=== PATIENT | male | born 1980 | race Caucasian/White ===

== ENCOUNTER → 2018-05-07 | Day surgery (SDC) | payer OTHER ==
[~2018-05-07] MED LIST: FENTANYL CITRATE/PF 100MCG/2 ML INJ ONE; HYDROCORTISONE25 MG RC; HYOSCYAMINE SULFATE 0.5 MG/ML INJ ONE; KETAMINE HCL INJ 50 MG/ML 10 ML VIAL ONE; MIDAZOLAM HCL 5 MG/ML VIAL ONE; PROPOFOL IV EMULSION 10 MG/ML 50 ML VIAL ONE
--- OUTSIDE RECORDS SUMMARY | 2018-05-07 08:09 | XMS REPORT | Clinical Summary ---
Author Author [facility] Organization [facility] Address Unknown Phone Unavailable Care Team Providers Care Commercial Energy Auditor Name Role Phone Eloise Bills MD PCP Allergies Comments Active Allergy Reactions Severity Noted Date No Known Drug Allergies 04/24/2015 Medications End Date Status Medication Sig Dispensed Refills Start Date Active ACCU-CHEK JIE PLUS TEST 0 STRP strip test strips 6 Active ACCU-CHEK SOFTCLIX 0 LANCETS lancets 6 Active losartan-hydrochlorothiaz Take 1 tablet 90 tablet 0 jessica (HYZAAR) 100-25 mg by mouth once 7 per tabletIndications: daily. Essential hypertension Active metFORMIN XR (GLUCOPHAGE Take 1 tablet 90 tablet 0 XR) 500 mg 24 hr (500 mg 8 tabletIndications: Class total) by 3 obesity due to excess mouth daily calories without serious with dinner. comorbidity with body mass index (BMI) of 40.0 to 44.9 in adult, Impaired glucose tolerance 05/19/2017 Discontinued metFORMIN XR (GLUCOPHAGE Take 1 tablet 90 tablet 0 XR) 500 mg 24 hr (500 mg 7 tabletIndications: Type 2 total) by diabetes mellitus without mouth daily complication, without with dinner. long-term current use of insulin (HCC) Active Problems Problem Noted Date Class 3 obesity due to excess calories without serious comorbidity with 05/19/2017 body mass index (BMI) of 40.0 to 44.9 in adult Overview: BMI 42 working on lifestyle modification for weight loss L ast Assessment & Plan: Intermittent fasting- Dr Jose Alberto Hope Diabetes mellitus type 2 in obese 04/24/2015 Overview: Current HbA1C- 5.5 Off Metformin since 1 year Lost weight 50 lbs with ketosis diet Last Assessment & Plan: Diabetes is improving with lifestyle modifications. Continue current treatment regimen. Dietary recommendations for ADA diet. Regular aerobic exercise. Discussed sick day management. Plastic Parts Fabricator Trimmer referral- patient declines Diabetes will be reassessed in 3 months. Essential hypertension 04/24/2015 Overview: Blood pressure has improved with weight loss lost 50 lbs with Keto diet still working on weight loss off BP medications L ast Assessment & Plan: Hypertension is improving with lifestyle modifications. Continue current treatment regimen. Dietary sodium restriction. Weight loss. Regular aerobic exercise. Ambulatory blood pressure monitoring. Blood pressure will be reassessed in 3 months. HLD (hyperlipidemia) 04/24/2015 Morbid obesity 04/24/2015 Overview: BMI 42 -working on weight loss with ketosis diet -does not wasn't to see real estate instructor at this time -prefers to loose weight with his own lifestyle modifications L ast Assessment & Plan: Recommend intermittent FASTING Weight Watchers or Plastic Parts Fabricator Trimmer PAtient declines assistance at this time. Seborrheic eczema 04/24/2015 Sleep apnea 04/24/2015 Hypertension 02/23/2013 Encounters Care Team Description Date Type Specialty Traci Avilez MA 04/02/2018 Telephone Family Medicine Eloise Bills MD Class 3 obesity due to excess calories without serious comorbidity with body mass index (BMI) of 40.0 to 44.9 in adult (Primary Dx); Impaired glucose tolerance; Seborrheic dermatitis of scalp; Essential hypertension; Morbid obesity; Diabetes mellitus type 2 in obese 05/19/2017 Office Visit Family Medicine Eloise Bills MD Type 2 diabetes mellitus with complication, unspecified usp insulin use status 05/15/2017 Lab Lab after 05/06/2017 Immunizations Name Dates Previously Given Next Due Influenza Trivalent 11/23/2014 Tdap 04/10/2015 Family History Medical History Relation Name Comments Diabetes Maternal Grandfather Dementia Maternal Grandmother Diabetes Maternal Grandmother Relation Name Status Comments Maternal Grandfather Maternal Grandmother Paternal Grandfather Paternal Grandmother Social History Date Tobacco Use Types Packs/Day Years Used Former Smoker Cigars 10 Smokeless Tobacco: Never Used Alcohol Use Drinks/Week oz/Week Comments Yes Seldom drinks, mostly in a social environment. Sex Assigned at Date Recorded Not on file Industry Job Start Date Occupation Not on file Not on file Not on file Travel End Travel History Travel Start No recent travel history available. Last Filed Vital Signs Time Taken Vital Sign Reading 05/19/2017 8:28 AM CDT Blood Pressure 129/74 05/19/2017 8:28 AM CDT Pulse 98 05/19/2017 8:28 AM CDT Temperature 36.9 C (98.4 F) 05/19/2017 8:28 AM CDT Respiratory Rate 18 05/19/2017 8:28 AM CDT Oxygen Saturation 98% - Inhaled Oxygen - Concentration 05/19/2017 8:28 AM CDT Weight 144 kg (318 lb 6.4 oz) 05/19/2017 8:28 AM CDT Height 185.4 cm (6' 1") 05/19/2017 8:28 AM CDT Body Mass Index 42.01 Plan of Treatment Health Maintenance Due Date Last Done Comments URINE MICROALBUMIN 09/17/2016 09/18/2015, 09/18/2015 DIABETIC FOOT EXAM 10/21/2016 10/22/2015, 10/22/2015, 09/18/2015 DIABETIC RETINAL EYE EXAM 09/17/2017 09/18/2015 INFLUENZA VACCINE 09/23/2017 11/23/2014 Procedures Comments Procedure Name Priority Date/Time Associated Diagnosis HEPATIC FUNCTION PANEL Routine 05/15/2017 Type 2 diabetes mellitus 8:29 AM CDT with complication, unspecified staff therapist insulin use status LIPID PANEL Routine 05/15/2017 Type 2 diabetes mellitus 8:29 AM CDT with complication, unspecified usp insulin use status URINALYSIS, AUTOMATED Routine 05/15/2017 Type 2 diabetes mellitus WITH MICROSCOPY 8:29 AM CDT with complication, unspecified staff therapist insulin use status HEMOGLOBIN A1C Routine 05/15/2017 Type 2 diabetes mellitus 8:29 AM CDT with complication, unspecified staff therapist insulin use status BASIC METABOLIC PANEL Routine 05/15/2017 Type 2 diabetes mellitus 8:29 AM CDT with complication, unspecified usp insulin use status CBC WITH PLATELET AND Routine 05/15/2017 Type 2 diabetes mellitus DIFFERENTIAL 8:29 AM CDT with complication, unspecified staff therapist insulin use status after 05/06/2017 Results * Urinalysis, automated with microscopy (05/15/2017 8:29 AM CDT) Color, UA YELLOW YELLOW [facility] [employer] [facility] [employer] [place] Appearance CLEAR CLEAR [facility] [employer] [facility] [employer] [place] Specific gravity, urine 1.015 1.001 - 1.035 [facility] [employer] [facility] [employer] [place] pH, urine 7.0 5.0 - 8.0 [facility] [place] Glucose, urine NEGATIVE NEGATIVE [facility] [place] Bilirubin, UA NEGATIVE NEGATIVE [facility] [place] Ketones, UA NEGATIVE NEGATIVE [employer] [facility] [employer] [place] Occult blood, urine NEGATIVE NEGATIVE [facility] [place] Protein, UA NEGATIVE NEGATIVE [facility] [place] Nitrite, UA NEGATIVE NEGATIVE [facility] [place] Leukocyte esterase, UA NEGATIVE NEGATIVE [facility] [place] WBC, UA NONE SEEN < OR=5 /HPF [facility] [place] RBC, UA NONE SEEN < OR=2 /HPF [facility] [place] Squamous epithelial NONE SEEN < OR=5 /HPF [facility] [employer] cells, UA [place] Bacteria, UA NONE SEEN NONE SEEN /HPF [facility] [place] Hyaline casts, UA NONE SEEN NONE SEEN /LPF [employer] [facility] [employer] [place] Specimen Blood Resulting Agency Comment Performing Organization Information: Site ID: [id number] Name: [facility] Address: [address] [place] [phone] Director: Mellissa Mcmullen MD Performing Organization Address City/State/Zipcode Phone Number [employer] [address] [address] * CBC with platelet and differential (05/15/2017 8:29 AM CDT) WBC 6.7 3.8 - 10.8 Thousand/uL [employer] [facility] [employer] [place] RBC 5.82 (H) 4.20 - 5.80 Million/uL [employer] [facility] [employer] [place] HGB 15.6 13.2 - 17.1 g/dL [employer] [facility] [employer] [place] HCT 47.0 38.5 - 50.0 % [employer] [facility] [employer] [place] MCV 80.8 80.0 - 100.0 fL [employer] [facility] [employer] [place] MCH 26.8 (L) 27.0 - 33.0 pg [employer] [facility] [employer] [place] MCHC 33.2 32.0 - 36.0 g/dL [employer] [facility] [employer] [place] RDW 14.4 11.0 - 15.0 % [employer] [facility] [employer] [place] Platelet count 265 140 - 400 Thousand/uL [employer] [facility] [employer] [place] MPV 8.9 7.5 - 12.5 fL [employer] [facility] [employer] [place] Neutrophils, absolute 3,732 1,500 - 7,800 cells/uL [employer] [facility] [employer] [place] Lymphocytes, absolute 2,352 850 - 3,900 cells/uL [employer] [facility] [employer] [place] Monocytes, absolute 422 200 - 950 cells/uL [employer] [facility] [employer] [place] Eosinophils, absolute 134 15 - 500 cells/uL [facility] [employer] [facility] [employer] [place] Basophils, absolute 60 0 - 200 cells/uL [facility] [employer] [facility] [employer] [place] Neutrophils 55.7 % [facility] Lymphocytes 35.1 % [facility] Monocytes 6.3 % [facility] Eosinophils 2.0 % [employer] [facility] [employer] [place] Basophils + RC 0.9 % [employer] [facility] [employer] [place] Specimen Blood Resulting Agency Comment Performing Organization Information: Site ID: [id number] Name: [facility] Address: [address] [place] [phone] Director: Mellissa Mcmullen MD Performing Organization Address [facility] Phone Number [facility] [employer] [facility] [employer] [place] [phone] * Hemoglobin A1c (05/15/2017 8:29 AM CDT) Hemoglobin A1C 5.5 <5.7 % of total Hgb [employer] [facility] [employer] Comment: [place] For the purpose of screening for the presence of diabetes: <5.7% Consistent with the absence of diabetes 5.7-6.4%Consistent with increased risk for diabetes (predi abetes) > or=6.5%Consistent with diabetes This assay result is consistent with a decreased risk of diabetes. Currently, no consensus exists regarding use of hemoglobin A1c for diagnosis of diabetes in children. According to [place] Diabetes Association (ADA) guidelines, hemoglobin A1c <7.0% represents optimal control in non- diabetic patients. Different metrics may apply to specific patient populations. Standards of Medical Care in Diabetes(ADA). Specimen Blood Resulting Agency Comment Performing Organization Information: Site ID: [id number] Name: [facility] Address: [address] [place] [phone] Director: Mellissa Mcmullen MD Performing Organization Address [facility]/Zipcode Phone Number [facility] [facility] [address] [phone] * Hepatic function panel (05/15/2017 8:29 AM CDT) Protein 7.1 6.1 - 8.1 g/dL [employer] [facility] [employer] [place] Albumin, S 4.5 3.6 - 5.1 g/dL [employer] [facility] [employer] [place] Globulin, total 2.6 1.9 - 3.7 g/dL (calc) [facility] Albumin/globulin ratio 1.7 1.0 - 2.5 (calc) [facility] Total bilirubin 0.6 0.2 - 1.2 mg/dL [facility] Bilirubin direct 0.1 < OR=0.2 mg/dL [facility] Bilirubin, indirect 0.5 0.2 - 1.2 mg/dL (calc) [facility] Alkaline phosphatase 47 40 - 115 U/L [facility] AST 18 10 - 40 U/L [facility] ALT 29 9 - 46 U/L [facility] Specimen Blood Resulting Agency Comment Performing Organization Information: Site ID: [id number] Name: [facility] Address: [address] [place] [phone] Director: Mellissa Mcmullen MD Performing Organization Address City/State/Zipcode Phone Number [address] [address] * Lipid panel (05/15/2017 8:29 AM CDT) Cholesterol, total 200 (H) <200 mg/dL [facility] HDL cholesterol 37 (L) >40 mg/dL [facility] Triglycerides 101 <150 mg/dL [facility] LDL cholesterol 142 (H) mg/dL (calc) [facility] calculated Comment: [place] Reference range: <100 Desirable range <100 mg/dL for patients with CHD or diabetes and <70 mg/dL for diabetic patients with known heart disease. LDL-C is now calculated using the Brandt-Randall calculation, which is a validated novel method providing better accuracy than the Friedewald equation in the estimation of LDL-C. Brandt LOYA et al. JUAN CARLOS. 2013;310(19): 4398-4082 (http://education.Stepsss.Silecs/faq/SQX969) Cholesterol/HDL ratio 5.4 (H) <5.0 (calc) [facility] Non-HDL cholesterol 163 (H) <130 mg/dL (calc) [facility] Comment: [place] For patients with diabetes plus 1 major ASCVD risk factor, treating to a non-HDL-C goal of <100 mg/dL (LDL-C of <70 mg/dL) is considered a therapeutic option. Specimen Blood Resulting Agency Comment Performing Organization Information: Site ID: [id number] Name: [facility] Address: [address] [place] [phone] Director: Mellissa Mcmullen MD Performing Organization Address [facility] Services[facility] Phone Number [facility] [place] [phone] * Basic metabolic panel (05/15/2017 8:29 AM CDT) Glucose 118 (H) 65 - 99 mg/dL [employer] [facility] [employer] Comment: [place] Fasting reference interval For someone without known diabetes, a glucose value between 100 and 125 mg/dL is consistent with prediabetes and should be confirmed with a follow-up test. BUN, whole blood 14 7 - 25 mg/dL [facility] Creatinine 0.72 0.60 - 1.35 mg/dL [facility] [employer] [facility] [employer] [place] EGFR Non-Afr. Lebanese 122 > OR=60 mL/min/1.73m2 [facility] EGFR 141 > OR=60 mL/min/1.73m2 [facility] BUN/creatinine ratio NOT APPLICABLE 6 - 22 (calc) [facility] Sodium 140 135 - 146 mmol/L [facility] Potassium 4.6 3.5 - 5.3 mmol/L [facility] Chloride 105 98 - 110 mmol/L [facility] CO2 28 20 - 31 mmol/L [facility] Calcium 9.4 8.6 - 10.3 mg/dL [employer] [facility] [employer] [place] Specimen Blood Resulting Agency Comment Performing Organization Information: Site ID: [id number] Name: [facility] Address: [address] [place] [phone] Director: Mellissa Mcmullen MD Performing Organization Address [facility] Servicescode Phone Number [facility] [employer] [place] [phone] after 05/06/2017 Insurance Payer Benefit Subscriber ID Type Phone Address Plan / Group AETNA AETNA PPO xxxxxxxxxx PPO OPEN CHOICE Advance Directives Patient has advance care planning documents on file. For more information, kathe hart contact: [facility] [address] [place] [address]
[2018-05-07 13:05] VITALS: BP 135/98
--- NOTE | 2018-05-07 19:12 | Operative Report ---
DATE OF PROCEDURE: 05/07/2018 SURGEON: Jeffry Ornelas MD PROCEDURES: Colonoscopy with polypectomy and biopsies. INDICATIONS FOR PROCEDURE: Rectal bleeding. MEDICATION: The patient was done under MAC, please see anesthesiologist's note. PROCEDURE IN DETAIL: With the patient in left lateral decubitus position, flexible fiberoptic Olympus colonoscope was inserted into the rectum with ease and advanced all the way to the cecum. An approximately 5 mm sessile polyp was snared from the cecum and polypectomy site was hemoclipped. Ileocecal valve was intubated and the scope was advanced into the terminal ileum. A prominent fold was noted in the terminal ileum that was biopsied. The scope was then withdrawn back into the colon. It was then withdrawn slowly. Mucosa overlying the ascending, transverse, descending and sigmoid colon appeared to be within normal limits. Several aphthous-like ulcers were noted in the rectum and biopsies were obtained. The scope was then retroflexed into the distal rectum and small internal hemorrhoids were noted, none of which was actively bleeding. The scope was then straightened out, it was subsequently withdrawn. The patient tolerated the procedure well. IMPRESSION: 1. Prominent fold, terminal ileum, biopsied. 2. Cecal polyp snared and polypectomy site was hemoclipped. 3. Scattered aphthous-like ulcers in the rectum. Biopsies were obtained. 4. Internal hemorrhoids, none actively bleeding. PLAN: Follow up histology. Initiate VSL#3 one p.o. daily. Anusol HC suppositories b.i.d. x10 days, then p.r.n. Timing of followup colonoscopy pending pathology report. Jeffry Ornelas MD [facility] /[id number]
== END | disposition home or self-care (01) ==
LOC: OR 08:07
PROVIDERS: ATTEND Internal Medicine Gastroenterology
DX: K92.1 Melena (principal); K63.5 Polyp of colon; K62.6 Ulcer of anus and rectum; K63.89 Other specified diseases of intestine; K64.8 Other hemorrhoids
CPT/HCPCS: 45380; 45385; J1980; J2250; J2704

== ENCOUNTER → 2018-07-02 | Day surgery (SDC) | payer OTHER ==
[2018-07-01 12:47] LABS: BASOPHILS # (AUTO) 0.1 (0.0-0.1); BASOPHILS % 0.8 % (0.0-1.0); EOSINOPHILS # (AUTO) 0.2 (0.0-0.4); HEMATOCRIT 48.9 % (38.2-49.6); HEMOGLOBIN 16.7 g/dL (14.0-18.0); LYMPHOCYTES # (AUTO) 2.6 (1.0-3.2); MEAN CORPUSCULAR HEMOGLOBIN 26.9 pg (28-32); MEAN CORPUSCULAR HGB CONC 34.2 g/dL (31-35); MEAN CORPUSCULAR VOLUME 78.9 fL (81-99); MONOCYTES # (AUTO) 0.5 (0.2-0.8); MONOCYTES % 6.5 % (4.4-11.3); NEUTROPHILS # (AUTO) 4.6 (2.1-6.9); NEUTROPHILS % 57.3 % (38.7-80.0); PLATELET COUNT 289 x10e3/uL (140-360); RED CELL DISTRIBUTION WIDTH 13.9 % (11.7-14.4)
[2018-07-01 13:00] LABS: ANION GAP 11.1 mmol/L (8-16); BLOOD UREA NITROGEN 11 mg/dL (7-26); BUN/CREATININE RATIO 14 (6-25); CALCIUM 9.8 mg/dL (8.4-10.2); CARBON DIOXIDE 26 mmol/L (22-29); CHLORIDE 101 mmol/L (98-107); EST GLOMERULAR FILTRATION RATE > 60 ML/MIN (60-); GLUCOSE 96 mg/dL (74-118); POTASSIUM 4.1 mmol/L (3.5-5.1); SODIUM 134 mmol/L (136-145)
[~2018-07-02] MED LIST changes: +ACETAMINOPHEN/CODEINE 300MG - 30MG TAB ONE; +BUPIVACAINE 0.25%/EPI 30ML SDV INJ ONE; +DEXAMETHASONE SOD PHOS INJ 4 MG/ML VIAL ONE; +HYDROMORPHONE 2MG/ML 2 MG/ML ML ONE; -HYOSCYAMINE SULFATE 0.5 MG/ML INJ ONE; -KETAMINE HCL INJ 50 MG/ML 10 ML VIAL ONE; +KETOROLAC TROMETHAMINE 30 MG/ML VIAL ONE; +LIDOCAINE HCL 2% LOCAL INJ 5 ML SDV VIAL INJ ONE; +MIDAZOLAM HCL 2 MG/2 ML VIAL ONE; -MIDAZOLAM HCL 5 MG/ML VIAL ONE; +ONDANSETRON HCL INJ 2MG/ML 2ML 2 MG/ML VIAL ONE; +PROPOFOL IV EMULSION 10 MG/ML 20 ML VIAL ONE; -PROPOFOL IV EMULSION 10 MG/ML 50 ML VIAL ONE; +SEVOFLURANE INHAL SOLN 250 ML PEN BTL ONE
--- OUTSIDE RECORDS SUMMARY | 2018-07-02 06:38 | XMS REPORT | Clinical Summary ---
Author Author [facility] Organization [facility] Address Unknown Phone Unavailable Care Team Providers Care Retail Account Executive Name Role Phone Eloise Bills MD PCP [...] to 44.9 in adult, Impaired glucose tolerance Active Problems Problem Noted Date Class 3 [...] Regular aerobic exercise. Discussed sick day management. Manager Group referral- patient declines Diabetes will be reassessed [...] ketosis diet -does not wasn't to see network contract manager at this time -prefers to loose weight with his own lifestyle modifications L ast Assessment & Plan: Recommend intermittent FASTING Weight Watchers or Manager Group PAtient declines assistance at this time. Seborrheic eczema 04/24/2015 Sleep apnea 04/24/2015 Hypertension 02/23/2013 Encounters Care Team Description Date Type Specialty Traci Avilez MA 04/02/2018 Telephone Family Medicine after 07/01/2017 Immunizations Name Dates Previously Given Next Due [...] travel history available. Last Filed Vital Signs Not on file Plan of Treatment Health Maintenance Due Date Last Done Comments URINE MICROALBUMIN 09/17/2016 09/18/2015, 09/18/2015 DIABETIC FOOT EXAM 10/21/2016 10/22/2015, 10/22/2015, 09/18/2015 DIABETIC RETINAL EYE EXAM 09/17/2017 09/18/2015 INFLUENZA VACCINE 09/23/2018 11/23/2014 Results Not on fileafter 07/01/2017 Insurance Payer Benefit Subscriber ID Type Phone Address Plan / Group [employer]IO [employer] PPO xxxxxxxxxx PPO OPEN CHOICE Advance Directives Patient has advance care planning documents on file. For more information, kathe hart contact: Manny Egan [address] [facility], [place] [address]
[2018-07-02 12:00] VITALS: BP 117/90
--- NOTE | 2018-07-02 16:33 | Operative Report ---
DATE OF PROCEDURE: 07/02/2018 SURGEON: Jeffery Gaytan MD PREOPERATIVE DIAGNOSIS: Right axillary lymphadenopathy, rule out malignancy. POSTOPERATIVE DIAGNOSIS: Right axillary lymphadenopathy, rule out malignancy. OPERATION PERFORMED: Right axillary lymphadenectomy. ANESTHESIA: General. COMPLICATIONS: None. ESTIMATED BLOOD LOSS: Minimal. PROCEDURE IN DETAIL: With the patient lying in bed in the supine position and good general anesthesia, the right chest and axilla were prepped with Betadine solution and draped in the usual manner. The area overlying the base of the axilla was then infiltrated with 0.25% Marcaine. An incision was made, it was carried down through the subcutaneous tissue and through the superficial fascia and immediately several enlarged lymph nodes were easily palpable in the area. This was slowly and carefully from the axillary contents and everything was ligated with 3-0 Vicryl and divided and the specimen with multiple lymph nodes was sent for pathological examination. The whole area was thoroughly irrigated. Hemostasis was ascertained. The superficial fascia was then reapproximated with 2-0 Vicryl, the subcutaneous tissue was approximated with 2-0 Vicryl, and the skin was closed with subcuticular 5-0 Vicryl. Benzoin, Steri-Strips and dressings were applied. The sponge, lap, and needle count was correct. The patient tolerated the procedure well and returned to the recovery room in stable condition. Jeffery Gaytan MD [facility] /[id number]
== END | disposition home or self-care (01) ==
LOC: OR 06:36
PROVIDERS: ATTEND Surgery
DX: R59.0 Localized enlarged lymph nodes (principal); Z01.810 Encounter for preprocedural cardiovascular examination; Z01.812 Encounter for preprocedural laboratory examination
CPT/HCPCS: 36415; 38500; 80048; 85025; 88305; 93005; J1100; J1170; J1885; J2001; J2250; J2405; J2704; 88304